=== PATIENT | female | born 1970 | race Caucasian/White ===

== ENCOUNTER 2016-09-11 14:25 | Emergency (ER) | payer BC ==
[2016-09-11] MEDS ORDERED: Bacitracin Oint 1 GM U/D Packet TOP ONE (14:40)
[2016-09-11] MEDS ORDERED: Lidocaine 1% 20 ML MDV INJECT ONE (14:40)
--- NOTE | 2016-09-11 15:07 | EDM.PDOC ---
ED HPI GENERAL MEDICAL PROBLEM - General Stated Complaint: LEFT RING FINGER CUT Time Seen by Provider: 09/11/16 14:38 Source of Information: Reports: Patient - History of Present Illness INITIAL COMMENTS - FREE TEXT/NARRATIVE: HISTORY AND PHYSICAL: []45-year-old female presenting with an injury to the left fourth finger History of Present Illness: []Patient was cutting vegetables last night and cut the flap on her pad of her left finger Patient states allergy to tetanus and penicillin Review of Systems: As per history of present illness and below otherwise all systems reviewed and negative. Past medical history: As per history of present illness and as reviewed below otherwise noncontributory. Surgical history: As per history of present illness and as reviewed below otherwise noncontributory. Social history: No reported history of drug or alcohol abuse. Family history: As per history of present illness and as reviewed below otherwise noncontributory. Physical exam: Alert and oriented female answering questions appropriately HEENT: Atraumatic, normocehpalic, pupils reactive, negative for conjunctival pallor or scleral icterus, mucous membranes moist, throat clear, neck supple, nontender, trachea midline. Lungs: Clear to auscultation, breath sounds equal bilaterally, chest non tender. Heart: S1S2, regular, negative for clicks, rubs, or JVD. Abdomen: Soft, nondistended, nontender. Negative for masses or hepatossplenmegaly. Negative for costovertebral tenderness. Pelvis: Stable nontender. Genitourinary: Deferred. Rectal: Deferred Extremities: Left fourth finger with laceration flap present bleeding freely an , negative for cords or calf pain. Neurovascular unremarkable. Neuro: Awake, alert, oriented. Cranial nerves II through XII unremarkable. Cerebellum unremarkable. Motor and sensory unremarkable throughout. Exam nonfocal. Block to her finger was acceptable for anesthesia effect, prior to anesthesia. Incision was noted to her finger and full range of motion was also present. Area was tacked down with 5 sutures. I would like her to be reevaluated in 2 days however she states she cannot be here until Discussed care of her finger with her if any signs of infection or non- viability she is to return immediately for reevaluation Diagnostics: [] Therapeutics: [Sutures placed] Impression: [Laceration with repair] Plan: [Home elevate as needed Cephalexin 500 3 times a day 5 days Sutures to be removed in 10 days. ] Definitive disposition and diagnosis as appropriate pending reevaluation and review of above. Onset: Sudden Duration: Hour(s): Location: Reports: Upper Extremity, Left Quality: Reports: Burning Severity: Moderate Improves with: Reports: None - Related Data Allergies Allergy/AdvReac Type Severity Reaction Status Date / Time latex Allergy Itching Verified 08/26/13 08:35 Penicillins Allergy Rash Verified 08/26/13 08:35 Tetracyclines Allergy Rash Verified 08/26/13 08:35 Home Meds: Home Meds Eszopiclone [Lunesta] 12/27/13 [History] Lisinopril/Hydrochlorothiazide [Lisinopril-Hctz 10-12.5 mg Tab] 12/27/13 [ History] Cephalexin [IJD: Cephalexin] 500 mg PO TID #15 cap 09/11/16 [Rx] Social & Family History - Tobacco Use Smoking Status *Q: Never Smoker - Alcohol Use Days Per Week of Alcohol Use: 0 - Recreational Drug Use Recreational Drug Use: No ED ROS GENERAL - Review of Systems Review Of Systems: ROS reveals no pertinent complaints other than HPI. ED EXAM, GENERAL - Physical Exam Exam: See Below ED GENERAL MEDICAL PROCEDURES - Laceration/Wound Repair Left Posterior Distal Finger Lac/wound length in cm: 3 Appearance: Muscle Distal NVT: Neuro & Vascular Intact, No Tendon Injury Anesthetic Type: Digital Local Anesthesia - Lidocaine (Xylocaine): 1% Plain Local Anesthetic Volume: 5cc Skin Prep: Chlorhexidine (Hibiciens), Providone-Iodine (Betadine) Exploration/Debridement/Repair: Wound Explored, in a Bloodless Field, Explored to Base Closed with: Sutures Suture Size: 4-0 # of Sutures: 5 Suture Type: Nylon Sterile Dressing Applied: Nurse Tetanus Status Addressed: Other (Allergic) Complications: No Departure - Departure Time of Disposition: 15:12 Disposition: Home, Self-Care 01 Condition: Good Clinical Impression: Laceration - Discharge Information Prescriptions: Cephalexin [IJD: Cephalexin] 500 mg PO TID #15 cap Additional Instructions: The following information is given to patients seen in the emergency department who are being discharged to home. This information is to outline your options for follow-up care. We provide all patients seen in our emergency department with a follow-up referral. The need for follow-up, as well as the timing and circumstances, are variable depending upon the specifics of your emergency department visit. If you don't have a primary care physician on staff, we will provide you with a referral. We always advise you to contact your personal physician following an emergency department visit to inform them of the circumstance of the visit and for follow-up with them and/or the need for any referrals to a consulting specialist. The emergency department will also refer you to a specialist when appropriate. This referral assures that you have the opportunity for followup care with a specialist. All of these measure are taken in an effort to provide you with optimal care, which includes your followup. Under all circumstances we always encourage you to contact your private physician who remains a resource for coordinating your care. When calling for followup care, please make the office aware that this follow-up is from your recent emergency room visit. If for any reason you are refused follow-up, please contact the [facility] emergency department at and asked to speak to the emergency department charge nurse. [facility] Cephalexin 500 3 times a day 5 days Return in 2-3 days for wound reevaluation should you notice any difficulty or signs of infection return sooner Sutures out in 10 days
== END 2016-09-11 15:20 | disposition home or self-care (01) ==
LOC: MW.ED 14:25
DX: S61.215A Laceration without foreign body of left ring finger without damage to nail, initial encounter (principal); Z91.040 Latex allergy status; Z88.0 Allergy status to penicillin; Z88.1 Allergy status to other antibiotic agents; W26.0XXA Contact with knife, initial encounter
CPT/HCPCS: 12002; 99282; 99283

== ENCOUNTER 2017-08-07 05:12 | Emergency (ER) | payer BC ==
[2017-08-07] MEDS ORDERED: Sodium Chloride 0.9% 1,000 ML IV ONE (05:17)
[2017-08-07] MEDS ORDERED: Ondansetron 4 MG/2 ML SDV IVPUSH ONE (05:18)
[2017-08-07] MEDS ORDERED: Ondansetron 4 MG/2 ML SDV ONE (05:19)
--- NOTE | 2017-08-07 05:21 | EDM.PDOC ---
ED HPI GENERAL MEDICAL PROBLEM - General Chief Complaint: Abdominal Pain Stated Complaint: STOMACH PAINS Time Seen by Provider: 08/07/17 05:20 Source of Information: Reports: Patient - History of Present Illness INITIAL COMMENTS - FREE TEXT/NARRATIVE: HISTORY AND PHYSICAL: History of present illness: [Patient presents with abdominal pain 8 out of 10 diffuse History of bowel obstruction with resection, cholecystectomy, hysterectomy, appendectomy Complains of nausea no vomiting no diarrhea constipation chest pain shortness breath headache dizziness or palpitation no urine symptoms ] Review of systems: As per history of present illness and below otherwise all systems reviewed and negative. Past medical history: As per history of present illness and as reviewed below otherwise noncontributory. Surgical history: As per history of present illness and as reviewed below otherwise noncontributory. Social history: No reported history of drug or alcohol abuse. Family history: As per history of present illness and as reviewed below otherwise noncontributory. Physical exam: HEENT: Atraumatic, normocephalic, pupils reactive, negative for conjunctival pallor or scleral icterus, mucous membranes moist, throat clear, neck supple, nontender, trachea midline. Lungs: Clear to auscultation, breath sounds equal bilaterally, chest nontender. Heart: S1S2, regular, negative for clicks, rubs, or JVD. Abdomen: Soft, nondistended, diffusely tender no guarding or rebound. Negative for masses or hepatosplenomegaly. Negative for costovertebral tenderness. Pelvis: Stable nontender. Genitourinary: Deferred. Rectal: Deferred. Extremities: Atraumatic, negative for cords or calf pain. Neurovascular unremarkable. Neuro: Awake, alert, oriented. Cranial nerves II through XII unremarkable. Cerebellum unremarkable. Motor and sensory unremarkable throughout. Exam nonfocal. Diagnostics: [CBC CMP UA lipase troponin EKG ] Therapeutics: [1 L normal saline bolus Zofran 8 mg IV ]Toradol 30 mg IV Reglan 10 mg IV Toradol Reglan Gas-X Follow-up with primary care Impression: [ abdominal pain ] Definitive disposition and diagnosis as appropriate pending reevaluation and review of above. Abdomen Pain Score (Numeric/FACES): 9 - Related Data Allergies Allergy/AdvReac Type Severity Reaction Status Date / Time latex Allergy Itching Verified 08/07/17 05:29 Penicillins Allergy Rash Verified 08/07/17 05:29 Tetracyclines Allergy Rash Verified 08/07/17 05:29 Home Meds: Home Meds Eszopiclone [Lunesta] 2 mg PO ASDIRECTED PRN 12/27/13 [History] Lisinopril/Hydrochlorothiazide [Lisinopril-Hctz 10-12.5 mg Tab] 10 - 12.5 mg PO DAILY 12/27/13 [History] Past Medical History Cardiovascular History: Reports: Hypertension Social & Family History - Caffeine Use Caffeine Use: Reports: Soda ED ROS GENERAL - Review of Systems Review Of Systems: See Below ED EXAM, GENERAL - Physical Exam Exam: See Below Course - Vital Signs Last Recorded V/S: Last Vital Signs Temp 96.7 F 08/07/17 05:26 Pulse 84 08/07/17 05:26 Resp 20 08/07/17 05:26 BP 135/97 H 08/07/17 05:26 Pulse Ox 100 08/07/17 05:26 - Orders/Labs/Meds Orders: Active Orders 24 hr Category Date Time Status EKG Documentation Completion [RC] STAT Care 08/07/17 05:21 Active Abdomen 2V AP Flat Upright [CR] Stat Exams 08/07/17 05:25 Taken UA W/MICROSCOPIC [URIN] Stat Lab 08/07/17 06:11 Ordered Labs: Laboratory Tests 08/07/17 08/07/17 08/07/17 Range/Units 05:20 05:20 06:11 WBC 5.99 (4.0-11.0) K/uL RBC 5.02 (4.30-5.90) M/uL Hgb 15.3 (12.0-16.0) g/dL Hct 45.7 (36.0-46.0) % MCV 91.0 (80.0-98.0) fL MCH 30.5 (27.0-32.0) pg MCHC 33.5 (31.0-37.0) g/dL RDW Std Deviation 42.9 (28.0-62.0) fl RDW Coeff of [place] 13 (11.0-15.0) % Plt Count 227 (150-400) K/uL MPV 12.70 H (7.40-12.00) fL Neut % (Auto) 41.6 L (48.0-80.0) % Lymph % (Auto) 47.2 H (16.0-40.0) % Pacific % (Auto) 6.2 (0.0-15.0) % Eos % (Auto) 4.0 (0.0-7.0) % Baso % (Auto) 1.0 (0.0-1.5) % Neut # (Auto) 2.5 (1.4-5.7) K/uL Lymph # (Auto) 2.8 H (0.6-2.4) K/uL Pacific # (Auto) 0.4 (0.0-0.8) K/uL Eos # (Auto) 0.2 (0.0-0.7) K/uL Baso # (Auto) 0.1 (0.0-0.1) K/uL Nucleated RBC % 0.0 /100WBC Nucleated RBCs # 0 K/uL Sodium 143 (136-145) mmol/L Potassium 3.7 (3.5-5.1) mmol/L Chloride 104 (98-107) mmol/L Carbon Dioxide 30.4 (21.0-32.0) mmol/L BUN 12 (7.0-18.0) mg/dL Creatinine 1.1 H (0.6-1.0) mg/dL Est Cr Clr Drug Dosing 45.91 mL/min Estimated GFR (MDRD) 53.2 ml/min Glucose 113 H (74-106) mg/dL Calcium 9.1 (8.5-10.1) mg/dL Total Bilirubin 0.6 (0.2-1.0) mg/dL AST 15 (15-37) IU/L ALT 19 (14-63) IU/L Alkaline Phosphatase 66 (46-116) U/L Troponin I < 0.050 (0.000-0.056) ng/mL Total Protein 7.5 (6.4-8.2) g/dL Albumin 4.3 (3.4-5.0) g/dL Globulin 3.2 (2.0-3.5) g/dL Albumin/Globulin Ratio 1.3 (1.3-2.8) Lipase 220 (73-393) U/L Urine RBC NONE SEEN (0-2/HPF) Urine WBC 1-3 (0-5/HPF) Ur Epithelial Cells RARE (NONE-FEW) Urine Bacteria RARE (NEGATIVE) Meds: Medications Discontinued Medications Generic Name Dose Route Start Last Admin Trade Name Jus PRN Reason Stop Dose Admin Sodium Chloride 1,000 mls @ 999 mls/hr 08/07/17 05:17 08/07/17 05:24 Normal Saline IV 08/07/17 06:17 999 mls/hr .BOLUS ONE Administration Ketorolac Tromethamine 30 mg 08/07/17 05:23 08/07/17 05:27 Toradol IVPUSH 08/07/17 05:24 30 mg ONETIME ONE Administration Metoclopramide HCl 10 mg 08/07/17 06:08 08/07/17 06:18 Reglan IV 08/07/17 06:09 10 mg ONETIME ONE Administration Ondansetron HCl 8 mg 08/07/17 05:18 08/07/17 05:23 Zofran IVPUSH 08/07/17 05:19 8 mg ONETIME ONE Administration Ondansetron HCl Confirm 08/07/17 05:19 08/07/17 05:25 Zofran Administered 08/07/17 05:20 Not Given Dose 8 mg .ROUTE .STK-MED ONE Pantoprazole Sodium 80 mg 08/07/17 05:26 08/07/17 05:40 Protonix Iv IVPUSH 08/07/17 05:27 80 mg .BOLUS ONE Administration Departure - Departure Time of Disposition: 06:44 Disposition: Home, Self-Care 01 Condition: Good Clinical Impression: Abdominal pain - Discharge Information Referrals: John Spencer MD [Primary Care Provider] - Forms: ED Department Discharge Additional Instructions: Medication as prescribed MiraLAX 17 g by mouth daily Gas-X 4 times daily as needed Return if symptoms persist or worsen or new concerning symptoms develop Follow-up with primary care in 2 weeks sooner as needed [facility] [address] [place] [address] The following information is given to patients seen in the emergency department who are being discharged to home. This information is to outline your options for follow-up care. We provide all patients seen in our emergency department with a follow-up referral. The need for follow-up, as well as the timing and circumstances, are variable depending upon the specifics of your emergency department visit. If you don't have a primary care physician on staff, we will provide you with a referral. We always advise you to contact your personal physician following an emergency department visit to inform them of the circumstance of the visit and for follow-up with them and/or the need for any referrals to a consulting specialist. The emergency department will also refer you to a specialist when appropriate. This referral assures that you have the opportunity for follow-up care with a specialist. All of these measure are taken in an effort to provide you with optimal care, which includes your follow-up. Under all circumstances we always encourage you to contact your private physician who remains a resource for coordinating your care. When calling for follow-up care, please make the office aware that this follow-up is from your recent emergency room visit. If for any reason you are refused follow-up, please contact the [facility] emergency department at and asked to speak to the emergency department charge nurse. - My Orders Last 24 Hours: My Active Orders 08/07/17 05:21 EKG Documentation Completion [RC] STAT 08/07/17 05:25 Abdomen 2V AP Flat Upright [CR] Stat 08/07/17 06:11 UA W/MICROSCOPIC [URIN] Stat - Assessment/Plan Last 24 Hours: My Active Orders 08/07/17 05:21 EKG Documentation Completion [RC] STAT 08/07/17 05:25 Abdomen 2V AP Flat Upright [CR] Stat 08/07/17 06:11 UA W/MICROSCOPIC [URIN] Stat
[2017-08-07] MEDS ORDERED: Ketorolac 30 MG/ML SDV IVPUSH ONE (05:23)
[2017-08-07] MEDS ORDERED: Pantoprazole 40 MG Vial IVPUSH ONE (05:26)
[2017-08-07 05:52] LABS: CHLORIDE,CL 104 mmol/L (98-107); SODIUM,NA 143 mmol/L (136-145)
[2017-08-07] MEDS ORDERED: Metoclopramide 10 MG/2 ML SDV IV ONE (06:08)
--- NOTE | 2017-08-07 13:25 | CR ---
EXAM DATE: 08/07/17 PATIENT'S AGE: 46 Patient: SOBIA HUNT Facility: [place], [place] Site . Site : 1970 Study: XRay Abdomen [id number]/12/2018 5:58:25 AM Ordering Physician: Blaze Muhammad Final Report: Indication: Abdomen pain Technique: Abdomen 3 view. Comparison: None. Findings: BOWEL: Bowel pattern is within normal limits. The amount of colonic stool is within normal limits. OTHER: No sign of free air. No sign of soft tissue mass. No suspicious calcifications. Osseous structures are unremarkable for age. Right upper quadrant surgical clips are consistent with a cholecystectomy. Impression: Unremarkable abdomen. No sign of bowel obstruction or other significant finding. Dictated by Teodroo Kidd MD @ Aug 07 2017 5:59AM (Electronic Signature) Report Signed by Proxy. AYANNA
== END 2017-08-07 07:03 | disposition home or self-care (01) ==
LOC: MW.ED 05:12
DX: R10.9 Unspecified abdominal pain (principal); I10 Essential (primary) hypertension; Z91.040 Latex allergy status; Z88.0 Allergy status to penicillin; Z88.1 Allergy status to other antibiotic agents; Z79.899 Other long term (current) drug therapy
CPT/HCPCS: 74019; 80053; 81001; 83690; 84484; 85025; 93005; 96361; 96374; 96375; 99284; C9113; J1885; J2405; J2765; J7040; 99283